=== PATIENT | male | born 1965 | race Caucasian/White ===

== ENCOUNTER 2022-02-11 15:04 | Emergency (ER) | payer BC ==
[2022-02-11 15:46] LABS: HEMOGLOBIN 15.5 gm/dl (14.0-17.5); RED BLOOD COUNT 4.84 M/UL (4.20-5.50); WHITE BLOOD COUNT 7.2 K/UL (4.5-11.0)
[2022-02-11 16:34] LABS: BUN/CREATININE RATIO 9 (0-10)
[2022-02-11] MEDS ORDERED: ZOFRAN 4 MG TAB4 MG PO (21:04)
[2022-02-11] MEDS ORDERED: PAXLOVID 150-11 EACH PO (21:04)
== END 2022-02-11 21:18 | disposition home or self-care (01) ==
LOC: ER1 15:04
PROVIDERS: Emergency Medicine
DX: U07.1 COVID-19 (principal); R55 Syncope and collapse; I10 Essential (primary) hypertension
CPT/HCPCS: 71045; 80053; 82550; 82553; 84484; 85025; 93005; 96361; 96374; 99284